=== PATIENT | female | born 1955 ===

== ENCOUNTER 2016-10-01 13:05 | Inpatient (IN) | payer MEDICAID, OTHER ==
[2016-10-01 13:05] VITALS: BMI 27.4
--- NOTE | 2016-10-01 14:09 | RAD ---
HISTORY: Medical clearance. Portable study 13:49. COMPARISON: No prior. FINDINGS: LUNGS: No active pulmonary disease. PLEURA: No significant pleural effusion identified, no pneumothorax apparent. CARDIOVASCULAR: No radiographic findings to suggest acute or significant cardiovascular disease. OSSEOUS STRUCTURES: No significant abnormalities. VISUALIZED UPPER ABDOMEN: Normal. OTHER FINDINGS: None. IMPRESSION: No active disease.
[2016-10-01 14:24] LABS: BASO # 0.1 K/uL (0.0-0.2); BASO % 1.4 % (0.0-2.0); EOS # 0.1 K/uL (0.0-0.7); EOS % 2.1 % (0.0-4.0); LYMPH # 1.9 K/uL (1.0-4.3); LYMPH % 36.4 % (20.0-40.0); MEAN CELL VOLUME 94.7 fl (81.0-99.0); MEAN CORPUSCULAR HGB CONC 33.8 g/dL (33.0-37.0); MEAN PLATELET VOLUME 9.2 fl (7.2-11.7); MONO # 0.5 K/uL (0.0-0.8); MONO % 9.8 % (0.0-10.0); NEUT # 2.6 K/uL (1.8-7.0); NEUT % 50.3 % (50.0-75.0); RED CELL DISTRIBUTION WIDTH 13.6 % (11.5-14.5); WHITE BLOOD COUNT 5.3 K/uL (4.8-10.8)
[2016-10-01 14:32] LABS: ALCOHOL SERUM < 10 mg/dl (0-10); ALKALINE PHOSPHATASE 206 U/L (38-126); ALT/SGPT 92 U/L (9-52); AST/SGOT 135 U/L (14-36); BILIRUBIN,TOTAL 0.2 mg/dl (0.2-1.3); BLOOD UREA NITROGEN 14 mg/dl (7-17); CALCIUM 8.9 mg/dL (8.4-10.2); CARBON DIOXIDE 20 mmol/L (22-30); CHLORIDE 108 mmol/L (98-107); GFR AFRICAN-AMERICAN > 60; GLUCOSE,RANDOM 339 mg/dL (65-105); POTASSIUM 4.4 MMOL/L (3.6-5.0); SODIUM 136 mmol/l (132-148); TOTAL PROTEIN 6.9 G/DL (6.3-8.2)
--- NOTE | 2016-10-01 14:36 | ED PDOC ---
HPI: Psych/Substance Abuse Time Seen by Provider: 10/01/16 13:15 Chief Complaint (Nursing): Psychiatric Evaluation Chief Complaint (Provider): Psychiatric Evaluation History Per: Patient History/Exam Limitations: no limitations Onset/Duration Of Symptoms: Days (x4) Current Symptoms Are (Timing): Still Present Associated Symptoms: Other (hearing voices telling her to harm herself; no suicidal/homicidal ideation) Involuntary Hold By: None Additional Complaint(s): Miranda Montgomery is a 60 year old female, with a past medical history inclusive of HTN, hypercholesterolemia, type II diabetes, seizure disorder bipolar disorder, depression and anxiety, who presents to the ED on 10/01/16 for a psychiatric evaluation, as she has been hearing voices telling her to harm herself over the past 4 days. Patient denies any suicidal/homicidal ideation, though she does admit to a previous suicide attempt 4 years ago via ingestion. She also admits to having been noncompliant with her psychiatric medication regimen, prescribed to her by her psychiatrist Dr. Ramon, as well as with her anti-seizure medications (for >1 month). Of note, patient reports daily alcohol use. PMD: Jefry Kline Psychiatrist: Dr. Ramon Past Medical History Reviewed: Historical Data, Nursing Documentation, Vital Signs Vital Signs: Last Vital Signs Temp 97 F L 10/01/16 13:06 Pulse 78 10/01/16 13:06 Resp 17 10/01/16 13:06 BP 148/74 10/01/16 13:06 Pulse Ox 99 10/01/16 13:06 - Medical History PMH: Anxiety, Arthritis, Back Problems (herniated discs), Bipolar Disorder, Colonic Polyps (2014), Depression, Diabetes (type 2), Hepatitis (C), HTN, Hypercholesterolemia, Seizures Denies: Asthma, Fractures, HIV, Pulmonary Embolism, Chronic Kidney Disease, Sexually Transmitted Disease - Surgical History Surgical History: Cholecystectomy, Endoscopy (2014) Other surgeries: colonoscopy - Family History Family History: States: Unknown Family Hx - Social History Current smoker - smoking cessation education provided: Yes (light smoker (<10 cigarettes/day)) Alcohol: Other (daily) Drugs: Cocaine - Immunization History Hx Tetanus Toxoid Vaccination: No Hx Influenza Vaccination: No Hx Pneumococcal Vaccination: No - Home Medications Home Medications: Ambulatory Orders Medication Instructions Recorded Gabapentin [Neurontin] 300 mg PO TID 09/02/14 Famotidine 20 mg PO BID 04/26/16 Lidocaine 5% [Lidoderm] 1 patch TOP DAILY 04/26/16 Phenytoin, Extended [Dilantin] 100 mg PO TID 04/26/16 Calcium Carbonate/Vitamin D3 1 tab PO BID 09/06/16 [Oysco 500-Vit D3 200 Tablet] Folic Acid 1 mg PO DAILY 09/06/16 Lisinopril [Zestril] 40 mg DAILY 09/06/16 Multivitamin [Daily Leisa] 1 tab PO DAILY 09/06/16 Penicillin VK [Pen-Vee K] 500 mg PO Q6 #20 tab 09/25/16 Aspirin [Ecotrin] 81 mg PO DAILY 10/01/16 Benztropine [Cogentin] 1 mg PO BID 10/01/16 Cholecalciferol [Vitamin D 1000 IU] 2,000 unit PO BID 10/01/16 Divalproex [Depakote ER] 250 mg PO BID 10/01/16 Fluticasone Nasal [Flonase] 2 spray CATRACHO DAILY PRN 10/01/16 Insulin Aspart, Recombinant 15 unit SC BRK 10/01/16 [Novolog] Insulin Aspart, Recombinant 18 unit SC ACL 10/01/16 [Novolog] Insulin Aspart, Recombinant 19 unit SC DIN 10/01/16 [Novolog] Insulin Glargine,Hum.rec.anlog 54 unit SC HS 10/01/16 [Toujeo Solostar] Linaclotide [Linzess] 290 mcg PO DAILY 10/01/16 lamoTRIgine [Lamictal] 100 mg PO BID 10/01/16 - Allergies Allergies/Adverse Reactions: Allergies Allergy/AdvReac Type Severity Reaction Status Date / Time No Known Allergies Allergy Verified 09/21/16 09:51 Review of Systems ROS Statement: Except As Marked, All Systems Reviewed And Found Negative Psych: Positive for: Psychosis (hearing voices telling her to harm herself). Negative for: Suicidal ideation (no homicidal ideation) Physical Exam - Reviewed Nursing Documentation Reviewed: Yes Vital Signs Reviewed: Yes - Physical Exam Appears: Positive for: Non-toxic, No Acute Distress Head Exam: Positive for: ATRAUMATIC, NORMAL INSPECTION, NORMOCEPHALIC Skin: Positive for: Normal Color, Warm, Dry Eye Exam: Positive for: Normal appearance, EOMI, PERRL ENT: Positive for: Normal ENT Inspection Neck: Positive for: Normal, Painless ROM, Supple Cardiovascular/Chest: Positive for: Regular Rate, Rhythm. Negative for: Murmur Respiratory: Positive for: Normal Breath Sounds. Negative for: Respiratory Distress Gastrointestinal/Abdominal: Positive for: Normal Exam, Soft. Negative for: Tenderness Back: Positive for: Normal Inspection Extremity: Positive for: Normal ROM. Negative for: Deformity (no signs of acute injury/trauma) Neurologic/Psych: Positive for: Alert, Oriented, Mood/Affect (calm/cooperative) - Laboratory Results Result Diagrams: 10/01/16 14:00 10/01/16 14:00 - ECG ECG: Positive for: Interpreted By Me ECG Rhythm: Positive for: Sinus Rhythm. Negative for: ST/T Changes Rate: 75 O2 Sat by Pulse Oximetry: 99 (RA) Pulse Ox Interpretation: Normal - Progress ED Course And Treament: Pt. evaluated by crisis and arrangements made for admission. Medical Decision Making Medical Decision Makin:15 Initial Impression: psychiatric evaluation Initial Plan: * EKG * CXR * Labs * Alcohol Serum * Dilantin * Urinalysis * Urine Drug Screen * Dilantin 100mg PO * Lamictal 25mg PO * Crisis Evaluation * 1:1 Observation * Reevaluation 18:09 Initial fingerstick glucose is 337. Will order administration of Insulin 6 units SC. 18:58 Repeat accucheck is 437, ordered administration of both an IV bolus as well as Insulin 8 units IV. 20:37 Repeat FSBS: 218. No ketones in urine. Pt. cleared medically for psychiatric administration. Scribe Attestation: Documented by Marely Curry, acting as a scribe for Wilmar Lawton Provider Scribe Attestation: All medical record entries made by the Scribe were at my direction and personally dictated by me. I have reviewed the chart and agree that the record accurately reflects my personal performance of the history, physical exam, medical decision making, and the department course for this patient. I have also personally directed, reviewed, and agree with the discharge instructions and disposition. Disposition - Clinical Impression Clinical Impression: Bipolar disorder - Patient ED Disposition Is Patient to be Admitted: Yes - Disposition Disposition: Routine/Home Disposition Time: 20:44 Condition: STABLE - Pt Status Changed To: Hospital Disposition Of: Inpatient - Admit Certification Admit to Inpatient:: After my assessment, the patient will require hospitalization for at least two midnights. This is because of the severity of symptoms shown, intensity of services needed, and/or the medical risk in this patient being treated as an outpatient.
[2016-10-01 14:54] LABS: RBC URINE 1 /hpf (0-3); URINE BILIRUBIN NEGATIVE (NEGATIVE); URINE BLOOD NEGATIVE (NEGATIVE); URINE COLOR YELLOW (YELLOW); URINE GLUCOSE (UA) >=500 mg/dL (Normal); URINE KETONE NEGATIVE (NEGATIVE); URINE LEUKOCYTE ESTERASE NEG Leu/uL (Negative); URINE PROTEIN 30 mg/dL (NEGATIVE); URINE UROBILINOGEN 0.2-1.0 mg/dL (0.2-1.0); WBC URINE 1 /hpf (0-5)
[2016-10-01] MEDS ORDERED: Insulin Regular 100 units/ml SC STA (18:09)
[2016-10-01] MEDS ORDERED: Insulin Regular 100 units/ml ONE ×2 (18:16→19:08)
[2016-10-01] MEDS ORDERED: Insulin Regular 100 units/ml IVP STA (18:58)
[2016-10-01] MEDS ORDERED: Sodium Chloride 0.9% 1,000 ML IV STA (18:58)
[2016-10-01 21:11] VITALS: O2SAT 100
[2016-10-01] MEDS ORDERED: DiphenhydrAMINE 50 mg/ml Inj IM PRN (21:53)
[2016-10-01] MEDS ORDERED: Alum-Mag Hydrox-Simethicone Susp (30 mL) PO PRN (21:53)
[2016-10-01] MEDS ORDERED: Magnesium Hydroxide Susp 30 ml UD PO PRN (21:53)
[2016-10-01] MEDS ORDERED: Bismuth Subsalicylate 262 mg/15 ml Sus (240 ml) PO PRN (21:56)
[2016-10-01] MEDS: Divalproex 250 mg DR(BID formulation) PO SCH (23:01)
[2016-10-01] MEDS: Insulin Regular 100 units/ml SC SCH (23:45)
[2016-10-02] MEDS: Divalproex 250 mg DR(BID formulation) PO SCH ×2 (08:13→17:32)
[2016-10-02] MEDS: Calcium-Vit D 500 mg-200 Units Tab UD PO SCH ×2 (08:14→17:33)
[2016-10-02] MEDS: Multivitamin With Minerals Tab PO SCH (08:14)
[2016-10-02] MEDS: Lidocaine 5% Patch TD SCH (08:17)
[2016-10-02] MEDS: Insulin Lispro (humaLOG) 100 Units/ml Inj SC SCH (08:21)
[2016-10-02 08:47] LABS: BASO % 0.3 % (0.0-2.0); EOS # 0.3 K/uL (0.0-0.7); EOS % 5.9 % (0.0-4.0); HEMATOCRIT 33.6 % (34.0-47.0); LYMPH # 1.7 K/uL (1.0-4.3); LYMPH % 37.7 % (20.0-40.0); MEAN CELL VOLUME 95.9 fl (81.0-99.0); MEAN CORPUSCULAR HEMOGLOBIN 31.5 pg (27.0-31.0); MEAN CORPUSCULAR HGB CONC 32.9 g/dL (33.0-37.0); MEAN PLATELET VOLUME 9.2 fl (7.2-11.7); MONO # 0.5 K/uL (0.0-0.8); MONO % 12.1 % (0.0-10.0); NRBC % 0.1 % (0.0-0.0); RED CELL DISTRIBUTION WIDTH 13.8 % (11.5-14.5); WHITE BLOOD COUNT 4.5 K/uL (4.8-10.8)
[2016-10-02] MEDS ORDERED: Benzocaine/Menthol (Cepacol) Lozenge PO PRN (09:13)
[2016-10-02 09:29] LABS: CHOLESTEROL 209 mg/dL (0-199)
[2016-10-02 09:35] LABS: ALB/GLOB RATIO 0.9 (1.0-2.1); ALKALINE PHOSPHATASE 185 U/L (38-126); ALT/SGPT 74 U/L (9-52); AST/SGOT 85 U/L (14-36); BILIRUBIN,TOTAL 0.3 mg/dl (0.2-1.3); BLOOD UREA NITROGEN 12 mg/dl (7-17); CALCIUM 8.8 mg/dL (8.4-10.2); CARBON DIOXIDE 22 mmol/L (22-30); CHLORIDE 107 mmol/L (98-107); GFR AFRICAN-AMERICAN > 60; GLUCOSE,RANDOM 323 mg/dL (65-105); POTASSIUM 4.2 MMOL/L (3.6-5.0); SODIUM 138 mmol/l (132-148); TOTAL PROTEIN 7.1 G/DL (6.3-8.2)
[2016-10-02 09:52] LABS: T4 9.94 ug/dl (5.5-11.0)
[2016-10-02 10:05] LABS: THYROID STIMULATING HORMONE 2.66 mIU/ML (0.46-4.68)
[2016-10-02] MEDS ORDERED: Insulin Lispro (humaLOG) 100 Units/ml Inj SC SCH ×2 (11:30→17:00)
--- NOTE | 2016-10-02 11:35 | CARD ---
APPROVED REPORT EKG Measurement Heart [id number] <Conclusion> Normal sinus rhythm Normal ECG
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
[2016-10-02] MEDS: Insulin Regular 100 units/ml SC SCH ×3 (12:26→23:59)
[2016-10-02] MEDS ORDERED: Insulin Detemir 100 Units/ml Inj SC SCH ×2 (22:00)
[2016-10-03] MEDS: Insulin Regular 100 units/ml SC SCH (06:19)
[2016-10-03 08:38] LABS: HEMATOCRIT 35.6 % (34.0-47.0); MEAN CELL VOLUME 95.9 fl (81.0-99.0); MEAN CORPUSCULAR HEMOGLOBIN 32.2 pg (27.0-31.0); MEAN CORPUSCULAR HGB CONC 33.6 g/dL (33.0-37.0); RED CELL DISTRIBUTION WIDTH 13.9 % (11.5-14.5); WHITE BLOOD COUNT 6.6 K/uL (4.8-10.8)
[2016-10-03 08:50] LABS: ALKALINE PHOSPHATASE 157 U/L (38-126); ALT/SGPT 70 U/L (9-52); AST/SGOT 51 U/L (14-36); BILIRUBIN,TOTAL 0.1 mg/dl (0.2-1.3); BLOOD UREA NITROGEN 13 mg/dl (7-17); CALCIUM 9.6 mg/dL (8.4-10.2); CARBON DIOXIDE 28 mmol/L (22-30); CHLORIDE 106 mmol/L (98-107); GFR AFRICAN-AMERICAN > 60; GLUCOSE,RANDOM 173 mg/dL (65-105); POTASSIUM 5.2 MMOL/L (3.6-5.0); SODIUM 144 mmol/l (132-148); TOTAL PROTEIN 7.9 G/DL (6.3-8.2)
[2016-10-03] MEDS: Insulin Lispro (humaLOG) 100 Units/ml Inj SC SCH ×5 (09:16→21:18)
[2016-10-03] MEDS: Lidocaine 5% Patch TD SCH (09:18)
[2016-10-03] MEDS: Calcium-Vit D 500 mg-200 Units Tab UD PO SCH ×2 (09:26→17:32)
[2016-10-03] MEDS: Multivitamin With Minerals Tab PO SCH (09:26)
[2016-10-03] MEDS: Divalproex 250 mg DR(BID formulation) PO SCH ×2 (09:27→17:33)
--- NOTE | 2016-10-03 09:30 | PN ---
DATE: 10/03/2016 MEDICAL FOLLOWUP NOTE The patient is seen and examined. Interim events noted. Psychiatric followup and intervention noted and appreciated. The patient remains in the psychiatric unit. The patient feels okay, had episode of low blood sugar. No chest pain or shortness of breath. PHYSICAL EXAMINATION: GENERAL: The patient is in no acute distress. VITAL SIGNS: Stable. HEART: S1, S2 normal, regular. LUNGS: Good bilateral air entry. ABDOMEN: Soft, nontender. EXTREMITIES: No edema, no calf swelling, no tenderness. No acute ischemia. CENTRAL NERVOUS SYSTEM: Essentially unchanged. DIAGNOSTIC DATA: Available diagnostic data reviewed. Overall, the patient's general medical condition is stable. PLAN: As ordered. Jefry Kline MD cc: [id number] TT: 10/03/2016 09:29:02 Confirmation # [id number] Dictation # [id number] [email or web address]
--- NOTE | 2016-10-03 13:23 | PCM.PYCHPN ---
Psychiatric Progress Note - Psychiatric Progress Note Patient seen today, length of contact: discussed with team Patient Chief Complaint: my sugar is all over the place Problems Identified/Issues Discussed: pt is sitting out in the day room socializing. she states her mood is improving. she denies medication side effects with abilify. Medication Change: No Consults ordered or reviewed: dr huitron is helping manage pt's diabetes Mental Status Examination - Cognitive Function Orientation: Person, Place, Situation Attention: WNL Concentration: WNL Association: WNL Fund of Knowledge: WN Decription of patient's judgement and insights: fair - Mood Mood: Neutral - Affect Affect: Broad - Speech Speech: Appropriate - Formal Thought Process Formal Thought Process: No Impairment - Suicidal Ideation Suicidal Ideation: No - Homicidal Ideation Homicidal Ideation: No Goal/Treatment Plan - Goal/Treatment Plan Need for Continued Stay: Remain at risks for inpatient hospitalization, Discharge may exacerbated symptoms Progress Toward Problem(s) and Goals/Treatment Plan: schizoaffective disorder alcohol dependence continue treatment with abilify- and will adjust as needed t/c neuro consult to adjust antiepilieptic medications Estimated Date of D/C: 10/06/16
[2016-10-03] MEDS ORDERED: Insulin Lispro (humaLOG) 100 Units/ml Inj SC SCH (16:30)
--- NOTE | 2016-10-03 17:00 | CON ---
DATE: 10/03/2016 ROOM: 318, psychiatry. HISTORY OF PRESENT ILLNESS: This is a 60-year-old female with known history of type 2 insulin-requir ing diabetes, now admitted for closer psychiatric evaluation and management of recent auditory halluc inations on the background of chronic schizoaffective disorder and is now being referred for diabetic evaluation because of extremes of glycemic fluctuations as noted thereof. PAST MEDICAL HISTORY: History of type 2 insulin-requiring diabetes on multiple injections of insulin , using Levemir at 54 units subQ at bedtime daily with Humalog given as 15 units subQ at breakfast ti me, 14 units at lunchtime, and 18 units at dinnertime with fluctuating glycemic levels as noted. How ever, overnight today she had a glucose dip of 42 mg/dL. History of hypertension and dyslipidemia, h istory of seizure disorder and has been off medications for some time now, history of chronic schizoa ffective disorder with previous admissions for depression and also suicidal attempts and ideations. SOCIAL HISTORY: The patient admits to nicotine dependence at this time with history of chronic alcoh olism and also previous illicit drug use with cocaine dependence over 20 years ago. REVIEW OF SYSTEMS: As mentioned above, admits to generalized body weakness with easy fatigability an d tiredness and suboptimal energy level. Also admits to episodic dizziness and lightheadedness, wors e on the day of admission. No chest pains or palpitations or PNDs. Her oral intake is variable with nausea, dyspepsia, and vague upper abdominal pain. Also, admits to polyuria and nocturia, again wor se over the last week or so prior to admission. PHYSICAL EXAMINATION: GENERAL: This is an average built female in no apparent distress. VITAL SIGNS: Blood pressure of 144/80, pulse of 70 beats per minute and regular, temperature 98, res pirations 20. Height is 5 feet 1 inch, weight is 143 pounds. HEENT: Head normocephalic. Eyes anicteric with pink conjunctivae. Fundoscopy not possible at this time. Ears, nose and throat otherwise normal. NECK: Supple. Thyroid gland is normal size. No carotid bruits. No cervical adenopathy. CARDIOPULMONARY: Has an adynamic precordium. S1, S2 is rapid and regular. LUNGS: Clear to auscultation. ABDOMEN: Flat, soft with positive bowel sounds. EXTREMITIES: No peripheral edema. Pulses are +2 bilaterally. LABORATORY DATA: Chemistry showed a BUN of 13, sodium 144, potassium 5.2, chloride 106, CO2 28, gluc ose 173 and creatinine 0.7. ASSESSMENT: This is a 60-year-old female with uncontrolled and decompensated type 2 insulin-requirin g diabetes with extremes of glycemic fluctuations from hypoglycemia to hyperglycemic accelerations as noted thereof. She also has diabetic microvascular complications of retinopathy and polyneuropathy with diabetic macrovascular complications of coronary artery disease and peripheral arterial disease and vasculopathy. She also has significant history of chronic schizoaffective disorder with previous admissions for major depression and suicidal ideations and gestures as noted thereof. PLAN OF MANAGEMENT: As discussed with the patient and the staff, will modify her current insulin reg imen to a more physiologic dosing combination and also at a much lower dosing regimen to obviate hypo glycemia, especially with the variability of her oral intake. Will lower the Humalog to 12 units a.c . breakfast and 12 units a.c. lunch with 14 units a.c. dinner to start today as ordered. Will also m odify the coverage scale with Humalog insulin to obviate hypoglycemia, and detailed orders have been given. Will lower the basal insulin with Levemir to be given as 14 units subQ at bedtime daily to [facility]. Will titrate incrementally as indicated to optimize metabolic control. Will follow. Melissa Bernal MD cc: [id number] TT: 10/03/2016 16:59:39 Confirmation # [id number] Dictation # [id number] steven
[2016-10-03] MEDS ORDERED: Magnesium Citrate Oral SOL (300 ml) PO ONE (20:16)
[2016-10-03] MEDS ORDERED: Insulin Detemir 100 Units/ml Inj SC SCH (22:00)
[2016-10-04] MEDS ORDERED: Insulin Lispro (humaLOG) 100 Units/ml Inj SC SCH (07:30)
[2016-10-04 07:37] LABS: ALB/GLOB RATIO 0.9 (1.0-2.1); ALKALINE PHOSPHATASE 139 U/L (38-126); ALT/SGPT 60 U/L (9-52); AST/SGOT 45 U/L (14-36); BILIRUBIN,TOTAL 0.2 mg/dl (0.2-1.3); BLOOD UREA NITROGEN 11 mg/dl (7-17); CALCIUM 8.9 mg/dL (8.4-10.2); CARBON DIOXIDE 28 mmol/L (22-30); CHLORIDE 102 mmol/L (98-107); GFR AFRICAN-AMERICAN > 60; GLUCOSE,RANDOM 146 mg/dL (65-105); SODIUM 136 mmol/l (132-148); TOTAL PROTEIN 6.9 G/DL (6.3-8.2)
--- NOTE | 2016-10-04 08:37 | PN ---
DATE: 10/04/2016 MEDICAL FOLLOWUP PROGRESS NOTE The patient is seen and examined. Interim events noted. Consults noted and appreciated. Endocrinol ogy and psychiatry followup and intervention noted and appreciated. The patient remains in the psych iatry unit. Denies any specific medical complaint, wants to go home. PHYSICAL EXAMINATION: GENERAL: The patient is in no acute distress. VITAL SIGNS: Stable. Physical exam is essentially unchanged. DIAGNOSTIC DATA: Available diagnostic data reviewed. Accu-Cheks are improved. Dilantin level is 4. 2. Medication is adjusted. Overall, the patient's general medical condition is stable. PLAN: As ordered. Jefry Kline MD cc: [id number] TT: 10/04/2016 08:37:31 Confirmation # [id number] Dictation # [id number] [email or web address]
[2016-10-04] MEDS: Multivitamin With Minerals Tab PO SCH (09:11)
[2016-10-04] MEDS: Divalproex 250 mg DR(BID formulation) PO SCH (09:12)
[2016-10-04] MEDS: Calcium-Vit D 500 mg-200 Units Tab UD PO SCH (09:14)
[2016-10-04] MEDS: Insulin Lispro (humaLOG) 100 Units/ml Inj SC SCH ×3 (09:17→12:31)
[2016-10-04 09:22] VITALS: BP 147/78
--- NOTE | 2016-10-04 09:46 | CON ---
DATE: 10/02/2016 CHIEF COMPLAINT: Hearing voices and she is really depressed. HISTORY OF PRESENT ILLNESS: This is a 60-year-old female, a patient of mine known to me for many yea rs, known case of diabetes, hypertension, elevated cholesterol, morbid obesity, status post gastric b ypass surgery, depression, hepatitis C, who was recently discharged from [facility] after admiss [facility] for alcohol withdrawal, alcohol detox and psychiatric issue, who was seen in the office yesterday . The patient was very devastated, was crying and was hearing voices and had intention of hurting he rself. The patient's family was also very much stressed and worried about her. The patient was sent to the Emergency Room for crisis intervention, where after psychiatric evaluation, the patient was a dmitted to psych unit. Medical consult was called for management of medical problems. REVIEW OF SYSTEMS: At this time is positive for psychiatric issues, but review of systems is negativ e for headache, dizziness, syncope, loss of consciousness, chest pain, shortness of breath, nausea, v omiting, diarrhea, constipation, any new joint or extremity pain. Review of systems of all other org an systems is unremarkable. PAST MEDICAL HISTORY: Significant for hypertension, diabetes, elevated cholesterol, morbid obesity, hepatitis C, seizure disorder and alcohol and substance abuse. Substance abuse was in the past. Alc ohol abuse is fairly recent. PAST SURGICAL HISTORY: Remarkable for gastric bypass surgery. PERSONAL HISTORY: The patient is currently abusing alcohol, but denies any substance abuse or smokin g. FAMILY HISTORY: Noncontributory. PHYSICAL EXAMINATION: GENERAL: Well-built, well-nourished 60-year-old female, depressed, crying, but in no acute respirato ry distress. VITAL SIGNS: Temperature afebrile, pulse 77, respirations 16, blood pressure 136/76. HEENT: Pupils reacting to light. No JVD, no thyromegaly, no lymphadenopathy. No nystagmus. Normoc ephalic, atraumatic skull. HEART: S1, S2 normal, regular. No significant murmur, gallop or rub is heard. LUNGS: Show good bilateral air exchange. ABDOMEN: Soft, nontender. No organomegaly, no fluid. Bowel sounds are plus. EXTREMITIES: No edema, no calf swelling, no tenderness, no acute ischemic. CENTRAL NERVOUS SYSTEM: Essentially unchanged. The patient is reexamined. There is no sign of any acute gross focal motor or sensory neurological deficit. DIAGNOSTIC DATA: Available diagnostic data reviewed. Urine toxicology is positive for benzodiazepin es, but negative for any drugs. ADMITTING IMPRESSION: A 60-year-old female admitted with diabetes, uncontrolled, type with hyperglyc emia, hypertension, elevated cholesterol, hepatitis C, alcohol abuse, history of substance abuse and morbid obesity, admitted with psychiatric issue. PLAN: As ordered. ____ follow up patient with you. Jefry Kline MD cc: [id number] TT: 10/02/2016 11:05:41 Confirmation # [id number] Dictation # [id number] tn 10/04/2016 08:45:48
--- NOTE | 2016-10-04 12:07 | PCM.PYCHDC ---
Mental Status Examination - Mental Status Examination Orientation: Person, Place, Situation, Time Memory: Intact Mood: Depressed Affect: Broad Speech: Appropriate, Slurred (secondary to cva) Attention: Poor Concentration: Poor Association: WNL Fund of Knowledge: WNL Formal Thought Process: No Impairment Description of patient's judgement and insight: fair insight/judgment currently Psychotic Thoughts and Behaviors: was reporting a/v hallucinations prior to admission. denies them now Suicidal Ideation: No Current Homicidal Ideation?: No Plan: currently denies suicidal or homicidal thoughts Discharge Summary - Discharge Note Reason for Hospitalization: pt reporting mood disturbance, hallucinations, suicidal thoughts Psychiatric History (includes Medical, Family, Personal Hx): previous admissions. pt has been seeing dr. brown for 15 plus years Laboratory Data: Abnormal Lab Results 10/03/16 10/04/16 10/04/16 21:00 06:14 06:39 Sodium 136 Potassium 5.0 Chloride 102 Carbon Dioxide 28 Anion Gap 10 BUN 11 Creatinine 0.6 L Est GFR ( Amer) > 60 Est GFR (Non-Af Amer) > 60 POC Glucose (mg/dL) 247 H 159 H Random Glucose 146 H Calcium 8.9 Total Bilirubin 0.2 AST 45 H ALT 60 H Alkaline Phosphatase 139 H Total Protein 6.9 Albumin 3.3 L Globulin 3.6 Albumin/Globulin Ratio 0.9 L Consultations:: List each consultation separately and include: 1. Reason for request. 2. Findings. 3. Follow-up Consultations: dr huitron is helping manage pt's diabetes Summary of Hospital Course include:: 1. Description of specific treatment plan utilized for patients during their course of treatmen. 2. Summarize the time- course for resolution of acute symptoms and/or regressed behaviors. 3. Describe issues identified and worked on during hospitalization. 4. Describe medication utilized. 5. Describe medical problems identified and treated. 6. Reassessment of suicide risk Summary of Hospital Course: 60 yo female with history of cocaine dependence- 30 years sober, and alcohol dependence as well as schizoaffective disorder. pt was at [facility] detox in mid september. she states she has only had a "few drinks" since . she reports she is here because she was feeling weak, depressed and hearing voices. she does not want to discuss the voices as she states "it's painful and complicated. she reports she wants to return to dr. brown who has been seeing her for 20 years. she reports some suicidal thoughts, but states "i won't do it , i have leah...i am strong" she is feeling sad and guilty about the impact of her drug use on her family. hospital course pt was [facility] and oriented to the unit. pt was seen by dr. baxter and dr. huitron to help manage her diabetes and other medical issues. her zyprexa was discontinued and she was started on abilify to manage her mood/psychotic symptoms. her other medicaitons were maintained as she received at home. the patient's mood improved and she was no longer complaining of any auditory/ visual hallucinations. her thoughts became more organized and she was visible in the milieu and participating in treatment. she had one verbal argument with a peer, but easily regained her usual composure. at time of discharged she was calm, denying suicidal or homicidal thoughts and future oriented with plans to return to dr. brown and to attend AA meetings to help with her sobriety. - Final Diagnosis (DSM 5) Condition upon Discharge: STABLE DSM 5: schizoaffective disorder alcohol dependence Disposition: HOME/ ROUTINE Follow-up Treatment Plan: follow up with outpatient providers take medications as prescribed see your medical specialists do not use alcohol, tobacco or other illicit substances call 911 if any suicidal or homicidal thoughts attend AA meetings daily Prescriptions/Medication Reconciliation: ARIPiprazole [Abilify] 5 mg PO DAILY #30 tab Aspirin [Ecotrin] 81 mg PO DAILY #30 Calcium Carbonate/Vitamin D3 [[place]co 500-Vit D3 200 Tablet] 1 tab PO BID #60 Cholecalciferol [Vitamin D 1000 IU] 2,000 unit PO BID #60 Divalproex [Depakote ER] 250 mg PO BID #60 Famotidine 20 mg PO BID #60 Fluticasone Nasal [Flonase] 2 spray CATRACHO DAILY PRN 30 Days PRN Reason: Allergy Symptoms Folic Acid 1 mg PO DAILY #30 Gabapentin [Neurontin] 300 mg PO TID #45 cap lamoTRIgine [Lamictal] 100 mg PO BID #30 Lidocaine 5% [Lidoderm] 1 patch TOP DAILY #30 Linaclotide [Linzess] 290 mcg PO DAILY #30 Lisinopril [Zestril] 40 mg PO DAILY #30 Multivitamin [Daily Leisa] 1 tab PO DAILY #30 Phenytoin, Extended [Dilantin] 100 mg PO TID #45 - Smoking Cessation Smoking Cessation Medication prescribed: No Reason for not providing: declines - Antipsychotic Medications Pt discharged on 2 or more routine antipsychotic medications: No
[2016-10-04 14:03] VITALS: PULSE 72; RESP 16; TEMP 97
[2016-10-05] MEDS ORDERED: Insulin Lispro (humaLOG) 100 Units/ml Inj SC SCH ×2 (07:30→11:30)
== END 2016-10-04 15:24 | disposition home or self-care (01) | DRG 430 ==
LOC: H.ER 13:05 → H.ERHOLD 18:09 → H.PSYCH 21:46
PROVIDERS: ADMIT Psychiatry & Neurology Psychiatry; ATTEND Psychiatry & Neurology Psychiatry
PROC: GZHZZZZ Group Psychotherapy (ICD-10-PCS; principal; 2016-10-01)
PROC: GZ58ZZZ Individual Psychotherapy, Cognitive-Behavioral (ICD-10-PCS; 2016-10-01)
DX: F25.0 Schizoaffective disorder, bipolar type (principal); E11.42 Type 2 diabetes mellitus with diabetic polyneuropathy; F14.20 Cocaine dependence, uncomplicated; R45.851 Suicidal ideations; E11.65 Type 2 diabetes mellitus with hyperglycemia; E66.01 Morbid (severe) obesity due to excess calories; E11.319 Type 2 diabetes mellitus with unspecified diabetic retinopathy without macular edema; B18.2 Chronic viral hepatitis C; G40.909 Epilepsy, unspecified, not intractable, without status epilepticus; F10.20 Alcohol dependence, uncomplicated; F17.210 Nicotine dependence, cigarettes, uncomplicated; E78.5 Hyperlipidemia, unspecified; I10 Essential (primary) hypertension; E78.00 Pure hypercholesterolemia, unspecified; I73.9 Peripheral vascular disease, unspecified; F41.9 Anxiety disorder, unspecified; I69.322 Dysarthria following cerebral infarction; Z91.19 Patient's noncompliance with other medical treatment and regimen; Z91.410 Personal history of adult physical and sexual abuse; Z91.5 Personal history of self-harm; Z79.4 Long term (current) use of insulin; Z79.82 Long term (current) use of aspirin; Z98.84 Bariatric surgery status; Z86.010 Personal history of colon polyps; Z68.27 Body mass index [BMI] 27.0-27.9, adult

== ENCOUNTER 2017-01-20 11:24 | Inpatient (IN) | payer MEDICAID, OTHER ==
[2017-01-20 11:25] VITALS: BMI 27.4
--- NOTE | 2017-01-20 12:01 | ED PDOC ---
HPI: Psych/Substance Abuse Time Seen by Provider: 01/20/17 11:55 Chief Complaint (Nursing): Psychiatric Evaluation Chief Complaint (Provider): Psychiatric Evaluation History Per: Patient History/Exam Limitations: no limitations Onset/Duration Of Symptoms: Days Current Symptoms Are (Timing): Still Present Associated Symptoms: Depression, Suicidal Thoughts Additional Complaint(s): Miranda is a 61 y/o female with a past medical history of diabetes, depression, and bipolar disorder, who was sent by PMD to the ED for psychiatric evaluation. Patient reports feeling depressed, hearing voices, and wanting to take pills to hurt herself. Denies homicidal ideation. PMD: Jefry Kline Past Medical History Reviewed: Historical Data, Nursing Documentation, Vital Signs Vital Signs: Last Vital Signs Temp 97 F L 01/20/17 11:34 Pulse 62 01/20/17 11:34 Resp 18 01/20/17 11:34 BP 146/85 01/20/17 11:34 Pulse Ox 99 01/20/17 11:34 - Medical History PMH: Anxiety, Arthritis, Back Problems (herniated discs), Bipolar Disorder, Colonic Polyps (2014), Depression, Diabetes (type 2), Hepatitis (C), HTN, Hypercholesterolemia, Schizophrenia, Seizures Denies: Asthma, Fractures, HIV, Pulmonary Embolism, Chronic Kidney Disease, Sexually Transmitted Disease - Surgical History Surgical History: Cholecystectomy, Endoscopy (2014) - Family History Family History: States: Unknown Family Hx - Living Arrangements Living Arrangements: With Family - Social History Alcohol: None Drugs: Denies - Immunization History Hx Tetanus Toxoid Vaccination: No Hx Influenza Vaccination: No Hx Pneumococcal Vaccination: No - Home Medications Home Medications: Ambulatory Orders Medication Instructions Recorded Insulin Aspart, Recombinant 15 unit SC BRK 10/01/16 [Novolog] Insulin Aspart, Recombinant 18 unit SC ACL 10/01/16 [Novolog] Insulin Aspart, Recombinant 19 unit SC DIN 10/01/16 [Novolog] ARIPiprazole [Abilify] 5 mg PO DAILY #30 tab 10/04/16 Aspirin [Ecotrin] 81 mg PO DAILY #30 10/04/16 Calcium Carbonate/Vitamin D3 1 tab PO BID #60 10/04/16 [Oysco 500-Vit D3 200 Tablet] Cholecalciferol [Vitamin D 1000 IU] 2,000 unit PO BID #60 10/04/16 Divalproex [Depakote ER] 250 mg PO BID #60 10/04/16 Famotidine 20 mg PO BID #60 10/04/16 Fluticasone Nasal [Flonase] 2 spray CATRACHO DAILY PRN 30 Days 10/04/16 Folic Acid 1 mg PO DAILY #30 10/04/16 Gabapentin [Neurontin] 300 mg PO TID #45 cap 10/04/16 Insulin Detemir [Levemir] 14 units SC HS vial 10/04/16 Lidocaine 5% [Lidoderm] 1 patch TOP DAILY #30 10/04/16 Linaclotide [Linzess] 290 mcg PO DAILY #30 10/04/16 Lisinopril [Zestril] 40 mg PO DAILY #30 10/04/16 Multivitamin [Daily Leisa] 1 tab PO DAILY #30 10/04/16 Phenytoin, Extended [Dilantin] 100 mg PO TID #45 10/04/16 lamoTRIgine [Lamictal] 100 mg PO BID #30 10/04/16 - Allergies Allergies/Adverse Reactions: Allergies Allergy/AdvReac Type Severity Reaction Status Date / Time No Known Allergies Allergy Verified 01/20/17 11:34 Review of Systems ROS Statement: Except As Marked, All Systems Reviewed And Found Negative Psych: Positive for: Depression, Suicidal ideation (wants to take pills). Negative for: Other (Homicidal ideation) Physical Exam - Reviewed Nursing Documentation Reviewed: Yes Vital Signs Reviewed: Yes - Physical Exam Appears: Positive for: Non-toxic, No Acute Distress Head Exam: Positive for: ATRAUMATIC, NORMAL INSPECTION, NORMOCEPHALIC Skin: Positive for: Normal Color, Warm, Dry Eye Exam: Positive for: EOMI, Normal appearance, PERRL Neck: Positive for: Normal, Painless ROM, Supple Cardiovascular/Chest: Positive for: Regular Rate, Rhythm. Negative for: Murmur Respiratory: Positive for: Normal Breath Sounds. Negative for: Accessory Muscle Use, Respiratory Distress Gastrointestinal/Abdominal: Positive for: Normal Exam, Soft. Negative for: Tenderness Back: Positive for: Normal Inspection. Negative for: Vertebral Tenderness Extremity: Positive for: Normal ROM. Negative for: Pedal Edema, Deformity Neurologic/Psych: Positive for: Alert, Oriented - Laboratory Results Result Diagrams: 01/20/17 12:20 01/20/17 12:20 Interpretation Of Abn Labs: no acute - ECG O2 Sat by Pulse Oximetry: 99 (RA) Pulse Ox Interpretation: Normal - Progress ED Course And Treament: 1407: Stable. Dr. Willis will admit for psych. Medically stable for eval. Medical Decision Making Medical Decision Making: Time: 12:00 Initial Impression: Psychiatric evaluation Initial Plan: --Labs --Pending crisis evaluation --Patient placed on 1:1 observation Scribe Attestation: Documented by Darya Grover, acting as a scribe for Jonathan Bassett MD Provider Scribe Attestation: All medical record entries made by the Scribe were at my direction and personally dictated by me. I have reviewed the chart and agree that the record accurately reflects my personal performance of the history, physical exam, medical decision making, and the department course for this patient. I have also personally directed, reviewed, and agree with the discharge instructions and disposition. Disposition - Clinical Impression Clinical Impression: Depression - Patient ED Disposition Is Patient to be Admitted: Yes Counseled Patient/Family Regarding: Studies Performed, Diagnosis - Disposition Disposition Time: 14:08 Condition: FAIR - Pt Status Changed To: Hospital Disposition Of: Inpatient - Admit Certification Admit to Inpatient:: After my assessment, the patient will require hospitalization for at least two midnights. This is because of the severity of symptoms shown, intensity of services needed, and/or the medical risk in this patient being treated as an outpatient. - POA Present On Arrival: None
[2017-01-20 12:24] LABS: BASO # 0.1 K/uL (0.0-0.2); BASO % 1.1 % (0.0-2.0); EOS # 0.2 K/uL (0.0-0.7); EOS % 3.9 % (0.0-4.0); HEMATOCRIT 35.3 % (34.0-47.0); LYMPH # 2.6 K/uL (1.0-4.3); LYMPH % 44.5 % (20.0-40.0); MEAN CORPUSCULAR HEMOGLOBIN 30.1 pg (27.0-31.0); MEAN CORPUSCULAR HGB CONC 33.2 g/dL (33.0-37.0); MEAN PLATELET VOLUME 9.3 fl (7.2-11.7); MONO # 0.5 K/uL (0.0-0.8); MONO % 8.8 % (0.0-10.0); NEUT # 2.4 K/uL (1.8-7.0); NEUT % 41.7 % (50.0-75.0); RED CELL DISTRIBUTION WIDTH 14.7 % (11.5-14.5); WHITE BLOOD COUNT 5.9 K/uL (4.8-10.8)
[2017-01-20 12:28] LABS: MEAN CELL VOLUME 90.6 fl (81.0-99.0)
[2017-01-20 12:36] LABS: ALCOHOL SERUM < 10 mg/dl (0-10); BLOOD UREA NITROGEN 21 mg/dl (7-17); CALCIUM 9.3 mg/dL (8.4-10.2); CARBON DIOXIDE 25 mmol/L (22-30); CHLORIDE 109 mmol/L (98-107); GFR AFRICAN-AMERICAN > 60; GLUCOSE,RANDOM 67 mg/dL (65-105); POTASSIUM 4.6 MMOL/L (3.6-5.0); SODIUM 142 mmol/l (132-148)
[2017-01-20 14:53] VITALS: O2SAT 100
[2017-01-20] MEDS ORDERED: Alum-Mag Hydrox-Simethicone Susp (30 mL) PO PRN (17:27)
[2017-01-20] MEDS ORDERED: DiphenhydrAMINE 50 mg/ml Inj IM PRN (17:27)
[2017-01-20] MEDS ORDERED: Magnesium Hydroxide Susp 30 ml UD PO PRN (17:27)
[2017-01-20] MEDS: Divalproex 250 mg DR(BID formulation) PO SCH (18:04)
[2017-01-21] MEDS: Divalproex 250 mg DR(BID formulation) PO SCH ×2 (08:49→17:09)
[2017-01-21 09:22] LABS: T4 7.23 ug/dl (5.5-11.0)
[2017-01-21 09:31] LABS: THYROID STIMULATING HORMONE 4.5 mIU/ML (0.46-4.68)
--- NOTE | 2017-01-22 09:22 | PCM.PSYCH ---
Initial Psychiatric Evaluation - Initial Psychiatric Evaluation Legal Status: Capacity Chief Complaint (in patient's own words): pt is depressed Patient's Reaction to Hospitalization: pt is depressed and was drinking History of Present Illness and Precipitating Events: Patient is a 61 y/o female admitted 01/20/17 due to SI with plan, AH, depression , and anxiety. Patient reported at admission having had thoughts to take pills. On unit, patient denies thoughts to harm self or others. Patient is superficially cooperative and reports goal to focus more on herself than on others. Reported AH at admission but denies at present. Thoughts are clear and organized in conversation. Patient identifies that stress leading up to admission exacerbated sxs. Patient is anxious and reports feeling depressed though mood appears to have improved since arrival to unit. Patient is social with peers. Coping skills are limited, but patient is able to explore coping strategies appropriately. Hx of of polysubstance abuse but denies recent use Current Medications: Active Medications Generic Name Dose Route Start Last Admin Trade Name Freq PRN Reason Stop Dose Admin Acetaminophen 650 mg 01/20/17 17:27 01/20/17 18:03 Tylenol 325mg Tab PO 650 mg Q4 PRN Administration Pain, moderate (4-7) Al Hydrox/Mg Hydrox/Simethicone 30 ml 01/20/17 17:27 Maalox Plus 30 Ml PO Q4 PRN Dyspepsia Aspirin 81 mg 01/22/17 09:00 Aspirin Chewable PO DAILY LAYLA Bupropion HCl 150 mg 01/22/17 09:00 Wellbutrin Sr 150 Mg PO DAILY LAYLA Calcium Carbonate 500 mg 01/22/17 09:00 Oscal PO DAILY [facility] Cholecalciferol 5,000 iu 01/22/17 09:00 Vitamin D PO DAILY LAYLA Diphenhydramine HCl 50 mg 01/20/17 17:27 Benadryl IM Q6 PRN Extrapyramidal S/S Unable PO Diphenhydramine HCl 50 mg 01/20/17 17:41 Benadryl PO HS PRN Sleep Divalproex Sodium 250 mg 01/20/17 17:45 01/21/17 17:09 José Lowe(*Bid*) PO 250 mg BID LAYLA Administration Famotidine 20 mg 01/22/17 09:00 Pepcid PO DAILY LAYLA Folic Acid 1 mg 01/22/17 09:00 Folic Acid PO DAILY LAYLA Gabapentin 300 mg 01/21/17 17:00 01/21/17 17:09 Neurontin PO 300 mg TID LAYLA Administration Haloperidol 5 mg 01/20/17 17:27 Haldol PO Q4 PRN Agitation Haloperidol Lactate 5 mg 01/20/17 17:27 Haldol IM Q4 PRN Agitation, Unable to Take PO Insulin Detemir 45 units 01/22/17 22:00 Levemir SC HS [facility] Lamotrigine 100 mg 01/22/17 09:00 Lamictal PO BID LAYLA Lisinopril 20 mg 01/22/17 09:00 Zestril PO DAILY LAYLA Lorazepam 2 mg 01/20/17 17:27 Ativan IM Q4 PRN Anxiety/Agitation,Unable PO Lorazepam 2 mg 01/20/17 17:27 Ativan PO Q4 PRN Anxiety/Agitation Magnesium Hydroxide 30 ml 01/20/17 17:27 Milk Of Magnesia PO HS PRN Constipation Multivitamins/Vitamin C 5 ml 01/22/17 09:00 Multi-Delyn Liquid PO DAILY [facility] Phenytoin Sodium 100 mg 01/22/17 09:00 Dilantin PO TID LAYLA Risperidone 1 mg 01/21/17 11:45 01/21/17 21:03 Risperdal Tab PO 1 mg AMHS LAYLA Administration Past Psychiatric History - Past Psychiatric History At [facility] hospital: [facility] in june this year for depresssion and drinking Nature of Treatment: depression History of Abuse: denies History of ETOH/Drug Use: pt has h/o drinking for past several years and last drink 4 months and denies withdrawls now History of Family Illness: none Pertinent Medical Hx (Current Medical&Sleep Prob, Allergies): Allergies Allergy/AdvReac Type Severity Reaction Status Date / Time No Known Allergies Allergy Verified 01/20/17 11:34 Acetaminophen [Tylenol Arthritis] 650 mg PO TID PRN 01/20/17 Aspirin [Ecotrin] 81 mg PO DAILY 01/20/17 Benztropine [Cogentin] 2 mg PO DAILY 01/20/17 Calcium Carbonate/Vitamin D3 [Caltrate 600 Plus D3 Tablet] 1 tab PO DAILY Cholecalciferol [Vitamin D 1000 IU] 5,000 unit PO DAILY 01/20/17 Famotidine [Pepcid] 20 mg PO BID 01/20/17 Folic Acid [Folic Acid] 1 mg PO DAILY 01/20/17 Gabapentin [Neurontin] 300 mg PO TID 01/20/17 Insulin Aspart, Recombinant [Novolog] 9 unit SC DIN 01/20/17 Insulin Aspart, Recombinant [Novolog] 15 unit SC BRK 01/20/17 Insulin Aspart, Recombinant [Novolog] 18 unit SC ACL 01/20/17 Insulin Glargine,Hum.rec.anlog [Toujeo Solostar] 56 unit SC HS 01/20/17 Linaclotide [Linzess] 290 mcg PO DAILY 01/20/17 Lisinopril/Hydrochlorothiazide [Lisinopril-Hctz 20-25 mg Tab] 1 tab PO DAILY Multivitamin [Multi-Vitamin Daily] 1 tab PO DAILY 01/20/17 Phenytoin, Extended [Dilantin] 100 mg PO TID 01/20/17 Risperidone [Risperdal] 0.5 mg PO HS 01/20/17 buPROPion XL [Wellbutrin XL] 150 mg PO DAILY 01/20/17 lamoTRIgine [Lamictal] 100 mg PO BID 01/20/17 Diabetes.HTN Review of Systems - Review of Systems All systems: reviewed and no additional remarkable complaints except Mental Status Examination - Personal Presentation Personal Presentation: Looks stated age - Affect Affect: Constricted, Depressed - Motor Activity Motor Activity: Other - Reliability in Providing Information Reliability in Providing Information: Fair - Speech Speech: Relevant - Mood Mood: Depressed - Formal Thought Process Formal Thought Process: No Impairment, Flight of ideas - Hallucinations/Delusions Hallucinations: Auditory - Obsessions/Compulsions Obsessions: No - Cognitive Functions Orientation: Person, Place, Situation Sensorium: Alert Attention/Concentration: Easily distracted Judgement: Imparied, as evidence by: Poor judgement, Imparied, as evidence by: Lack of insight into illness Memory: Recent intact, as evidence by: Ability to recall events of the day - Strength & Assets Inventory Strength & Assets Inventory: Family support DSM 5 DX - DSM 5 DSM 5 Diagnosis: schizoaffective disorder ,depressed h/o alcohol abuse in past - Recommended/Plan of Treatment Treatment Recommendations and Plan of Treatment: will in rease risperdal to stabilize the psychotic thinking and monitor the response and side effects As pt is doing well on wellbutrin and will titrate as nedded to stabilize the pt
[2017-01-22] MEDS: Multiple Vitamins Oral Solution PO SCH (09:46)
[2017-01-22] MEDS: Divalproex 250 mg DR(BID formulation) PO SCH ×2 (09:46→17:22)
[2017-01-22] MEDS: buPROPion SR 150 MG TABLET PO SCH (09:49)
[2017-01-22] MEDS: Insulin Lispro (humaLOG) 100 Units/ml Inj SC SCH (17:11)
[2017-01-22] MEDS: Insulin Detemir 100 Units/ml Inj SC SCH (21:30)
[2017-01-23] MEDS: Insulin Lispro (humaLOG) 100 Units/ml Inj SC SCH ×5 (05:37→21:15)
[2017-01-23] MEDS: Multiple Vitamins Oral Solution PO SCH (09:26)
[2017-01-23] MEDS: Divalproex 250 mg DR(BID formulation) PO SCH ×2 (09:26→17:34)
[2017-01-23] MEDS: buPROPion SR 150 MG TABLET PO SCH (09:26)
--- NOTE | 2017-01-23 11:55 | PN ---
DATE: 01/23/2017 SUBJECTIVE: The patient was seen and examined. Interim events noted. Psychiatry intervention noted and appreciated. The patient remains in psych unit. Denies any specific medical complaint. No chest pain. No shortness of breath. PHYSICAL EXAMINATION: GENERAL: The patient is in no acute distress. VITAL SIGNS: Stable. HEART: S1 and S2 normal, regular. LUNGS: Good bilateral air exchange. ABDOMEN: Soft and nontender. EXTREMITIES: No edema. No calf swelling or tenderness. No acute ischemia. CEO & FOUNDER: Essentially unchanged. DIAGNOSTIC DATA: Available diagnostic data reviewed. Accu-Check remains high with 300 range. The patient was started on Levemir yesterday. IMPRESSION: Overall, the patient is medically stable. PLAN: As ordered. Jefry Kline MD
--- NOTE | 2017-01-23 11:56 | PCM.PYCHPN ---
Psychiatric Progress Note - Psychiatric Progress Note Patient Chief Complaint: pt is depressed Mental Status Examination - Cognitive Function Orientation: Person, Place, Situation - Mood Mood: Depressed - Affect Affect: Constricted, Depressed - Formal Thought Process Formal Thought Process: No Impairment, Flight of ideas - Homicidal Ideation Homicidal Ideation: No Goal/Treatment Plan - Goal/Treatment Plan Progress Toward Problem(s) and Goals/Treatment Plan: will in rease risperdal to stabilize the psychotic thinking and monitor the response and side effects As pt is doing well on wellbutrin and will titrate as nedded to stabilize the pt
[2017-01-23] MEDS: Insulin Detemir 100 Units/ml Inj SC SCH (21:17)
[2017-01-24] MEDS: Insulin Lispro (humaLOG) 100 Units/ml Inj SC SCH ×5 (06:31→21:42)
[2017-01-24] MEDS: Multiple Vitamins Oral Solution PO SCH (08:43)
[2017-01-24] MEDS: buPROPion SR 150 MG TABLET PO SCH (08:43)
--- NOTE | 2017-01-24 08:56 | CON ---
DATE: CHIEF COMPLAINT: Severe depression. HISTORY OF PRESENT ILLNESS: This is a 61-year-old female who was seen in the office yesterday where the patient was crying and was inconsolable and was complaining of hearing voices. Also collateral evidence from parents are confirmed that patient was doing some abnormal behavior like cleaning herself with laundry detergent. The patient was sent to the emergency room where after evaluation and crisis evaluation, patient was admitted to psychiatric clinic. Medical consult was requested for medical problem management. REVIEW OF SYSTEMS: At this time is positive for psychiatric complaint. Review of system otherwise is negative for headache, dizziness, syncope, loss of consciousness, chest pain, shortness of breath, nausea, vomiting, diarrhea, constipation or any joint or extremity pain. Review of system of all other organ system is unremarkable. PAST MEDICAL HISTORY: Significant for diabetes, hypertension, morbid obesity, coronary artery disease, psychiatric disorder, elevated cholesterol, seizure disorder. PAST SURGICAL HISTORY: Remarkable for multiple surgeries for morbid obesity and constipation. PERSONAL HISTORY: The patient is currently nonsmoker and nondrinker. No substance abuse. MEDICATION: The patient is on multiple medications. ALLERGIES: THE PATIENT IS NOT ALLERGIC TO ANY MEDICATION. FAMILY HISTORY: Noncontributory. PHYSICAL EXAMINATION: GENERAL: The patient is well-developed, well-nourished depressed 61-year-old female in no acute distress. VITAL SIGNS: Temperature afebrile, pulse 60, respirations 18, blood pressure 130/73. HEENT: Pupils are reacting to light. Normocephalic and atraumatic scalp. NECK: No JVD. No thyromegaly. No lymphadenopathy. No nystagmus. HEART: S1 and S2 normal and regular. No significant murmur, gallop, or rub is heard. LUNGS: Shows good bilateral air exchange. No rales or rhonchi. ABDOMEN: Soft and nontender. No organomegaly noted. Bowel sounds are present. Multiple scars are present. EXTREMITIES: No edema. No calf swelling. No tenderness. CENTRAL NERVOUS SYSTEM: Essentially unchanged. is no sign of any acute gross, focal, motor or sensory neurological deficit. LABORATORY DATA: Reviewed and show Jefry Kline MD
--- NOTE | 2017-01-24 09:31 | PN ---
DATE: 01/22/2017 SUBJECTIVE: The patient seen and examined. Interim events noted. Psychiatry and intervention noted and appreciated. The patient remains in geropsychiatric unit. The patient feels little better, depression seems to be much improved. The patient is happy and smiling. No chest pain. No shortness of breath. No medical complaints. PHYSICAL EXAMINATION: GENERAL: The patient is in no acute distress. VITAL SIGNS: Stable. HEART: S1 and S2 normal and regular. LUNGS: Good bilateral air exchange. ABDOMEN: Soft and nontender. EXTREMITIES: No edema. No calf swelling or tenderness. No acute ischemia. CENTRAL NERVOUS SYSTEM: Essentially unchanged. DIAGNOSTIC DATA: Available diagnostic data reviewed. Hemoglobin A1c is 9.5. ASSESSMENT: Overall, the patient's general medical condition is stable. We will start the patient back on maintenance medications. PLAN: As ordered. Case and plan was discussed with the patient. Jefry Kline MD
--- NOTE | 2017-01-24 10:22 | PCM.PYCHPN ---
Psychiatric Progress Note - Psychiatric Progress Note Patient seen today, length of contact: discussed with team Patient Chief Complaint: i want to go home Problems Identified/Issues Discussed: pt is asking to leave. she is looking sedated. she is stating she no longer has any a/v hallucinations, but she seems confused at times. pt's blood sugars are up and down. she is on4 antiepileptic medications. Medication Change: Yes (dc wellbutrin) Medical Record Reviewed: Yes Consults ordered or reviewed: endocrinology and neurology Mental Status Examination - Cognitive Function Orientation: Person, Place, Situation Memory: Intact Attention: Poor Concentration: Poor Association: WNL Fund of Knowledge: [facility] Decription of patient's judgement and insights: superficial insight - Mood Mood: Anxious - Affect Affect: Constricted, Depressed - Speech Speech: Slurred - Formal Thought Process Formal Thought Process: No Impairment, Loosening of associations Psychotic Thoughts and Behaviors: disorganized/confused - Suicidal Ideation Suicidal Ideation: No - Homicidal Ideation Homicidal Ideation: No Goal/Treatment Plan - Goal/Treatment Plan Need for Continued Stay: Remain at risks for inpatient hospitalization, Severe functional impairment Progress Toward Problem(s) and Goals/Treatment Plan: schizoaffective disorder history of polysubstance abuse seizure disorder pt on 4 antiepileptics and states she has a seizure disorder, but does not see a neurologist, but is treated by dr. baxter. there are serious interactions with lamictal and depakote. pt also on neurontin and dilantin. she is also on wellbutrin which is contraindicated with a seizure disorder will dc wellbutrin will ask for a neurology consult to help clarify seizure dx and consolidate treatment encorinology consulted to help manage diabetes which appears poorly controlled at this time encouraged the pt to sign a 48 hour notice if she wants to leave the hospital as at this time she does not appear appopriate for discharge risperdal has helped control psychotic symptoms will check dilantin and depakote levels Estimated Date of D/C: 01/27/17
[2017-01-24] MEDS: Divalproex 250 mg DR(BID formulation) PO SCH ×2 (12:53→17:31)
[2017-01-24 17:39] VITALS: RESP 18
[2017-01-24] MEDS: Insulin Detemir 100 Units/ml Inj SC SCH (21:44)
--- NOTE | 2017-01-24 22:02 | PN ---
DATE: 01/24/2017 SUBJECTIVE: The patient was seen and examined. Interim events noted. Psychiatric followup and intervention noted and appreciated. The patient feels okay. Denies any specific complaints. No chest pain. No shortness of breath. Feels ready, well and wants to go home. PHYSICAL EXAMINATION: GENERAL: The patient is in no acute distress. VITAL SIGNS: Stable. HEART: S1 and S2 normal and regular. LUNGS: Good bilateral air entry. ABDOMEN: Soft, nontender. EXTREMITIES: No edema. No calf swelling. No tenderness. No acute ischemia. CENTRAL NERVOUS SYSTEM: Essentially unchanged. DIAGNOSTIC DATA: Available diagnostic data reviewed. Accu-checks are fluctuating. The patient did not get her regular Lantus; although it was not held by my order. IMPRESSION: Overall, the patient is clinically and medically stable. PLAN: As ordered. Jefry Kline MD
--- NOTE | 2017-01-24 23:10 | CON ---
ENDOCRINOLOGY CONSULT LOCATION: Room #320 HISTORY OF PRESENT ILLNESS: This is a 61-year-old female with known history of type 2 insulin-requiring diabetes admitted here to the psychiatry unit because of increasing generalized anxiety and depression and is now being referred for diabetic evaluation and management. PAST MEDICAL HISTORY: History of type 2 insulin-requiring diabetes on a combination of Toujeo given as 56 units subcu at bedtime daily as noted. She is also on NovoLog given as 9 units before dinner and 18 units at lunchtime as noted. History of hypertension and dyslipidemia, history of diabetic retinopathy and polyneuropathy, also history of generalized anxiety and depression with underlying chronic schizoaffective disorder. FAMILY HISTORY: Positive for diabetes and hypertension. SOCIAL HISTORY: The patient has a supportive family. No known substance use. REVIEW OF SYSTEMS: As mentioned above. Admits to generalized body weakness with easy fatigability and tiredness and suboptimal energy level. Also admits to episodic bouts of dizziness and lightheadedness, worse on the day of admission. No chest pains or palpitations or PND. Her oral intake is variable and suboptimal with dyspepsia and vague upper abdominal pains. Also admits to episodic polyuria and nocturia as noted. PHYSICAL EXAMINATION: GENERAL: This is an average-built female, in no apparent distress. VITAL SIGNS: Blood pressure of 140/80, pulse of 70 beats per minute and regular, temperature 99, respirations 20, height is 5 feet and 1 inch and weight is 140 pounds. HEENT: Head normocephalic. Eyes anicteric with pink conjunctivae. Funduscopy not possible at this time. Ears, nose, and throat otherwise normal. NECK: Supple. Thyroid gland is normal in size. No carotid bruits or cervical adenopathy. CARDIOPULMONARY: Some adynamic precordium. S1 and S2 are rapid and regular. LUNGS: Clear to auscultation. ABDOMEN: Flat, soft with positive bowel sounds. EXTREMITIES: No peripheral edema. Pulses are +2 bilaterally. LABORATORY DATA: Her chemistry showed a BUN of 21, sodium 142, potassium 4.6, chloride 109, CO2 of 25, glucose 67 and creatinine 0.7. Her glucose levels have ranged from 304 to 367 mg/dL. ASSESSMENT: This is a 61-year-old female with uncontrolled and decompensated type 2 insulin-requiring diabetes presenting here with major depression and also supervening hyperglycemic accelerations as noted thereof. She also has diabetic microvascular complications of retinopathy and polyneuropathy as noted. PLAN: Plan of management as discussed with the patient and staff. We will modify current basal and bolus insulin regimen and switch over to a more physiologic dose combination with Levemir to be given as 40 units subcu at bedtime daily to start tonight. We will also add Humalog given as 8 units subcu t.i.d. before meals to start at dinner time today as ordered. We will modify the coverage scale to obviate hypoglycemia and detailed orders have been given. We will obtain serial chemistries and supplement accordingly as needed. We will follow. Melissa Bernal MD
--- NOTE | 2017-01-25 00:21 | CON ---
DATE: 01/24/2017 NEUROLOGY CONSULTATION CHIEF COMPLAINT: Evaluation of her seizure medications. HISTORY OF PRESENT ILLNESS: This is a 61-year-old woman with history of hypertension, type 2 diabetes, morbid obesity, constipation, depression, and anxiety, who came to the psychiatric facility because she was crying uncontrollably and was complaining of hearing voices and therefore came to stabilize *------* for underlying severe depression. She is walking around with a better mood now and a better affect. She has a questionable history of seizure disorder. No further seizures. She mentioned that her chin tremors, though no postictal phenomenon associated with that. No focal weakness in the extremities. She is on multiple antiepileptic drugs such as Lamictal, Depakote, Neurontin, and Dilantin, all of which she does not need to be all on. Her MRI of the brain in 09/2016 showed no acute intracranial abnormalities, just chronic ischemic changes. She had an EEG also in 09/2016, which showed just bilateral cerebral dysfunction. No evidence of any epileptiform activity. PAST MEDICAL HISTORY: History of hypertension, diabetes, coronary artery disease, depression, anxiety, questionable seizure disorder, and hyperlipidemia. ALLERGIES: NO KNOWN DRUG ALLERGIES. MEDICATIONS: Reviewed by nurse per reconciliation sheet. SOCIAL HISTORY: No illicit drug use, smoking, or ETOH abuse. REVIEW OF SYSTEMS: A 14-point review of system is negative except per the HPI. PHYSICAL EXAMINATION: GENERAL: The patient seen up in bed in no acute distress. VITAL SIGNS: Temperature 97.8, pulse rate 69, blood pressure 120/70, respiratory rate 18, and oxygen saturation 98% by room air. HEENT: Head is atraumatic, normocephalic. PERRLA. Extraocular muscles intact. NECK: Supple. No JVD. No adenopathy noted. LUNGS: Clear to auscultation. No adventitious sounds. HEART: S1 and S2, normal rate and rhythm. No murmur, rubs, or gallops. ABDOMEN: Soft, nontender, nondistended. Bowel sounds present. EXTREMITIES: No clubbing. No cyanosis. Peripheral pulses 2+ felt bilaterally. NEUROLOGIC: The patient is alert and oriented to person, place, month, and year. Affect is flat. Loose association and tangential speech. Attention span, thought process mildly slow. Cranial nerves II through XII are intact. Motor exam: Moves all extremities equally. Toes are downgoing bilaterally. Sensory exam: Light touch and pinprick slightly decreased at the calves bilaterally and decreased vibration of the toes. DTRs are 2+ throughout and 1 at the ankles. Coordination [id number] intact. Gait is normal, but mildly wide based. LABORATORY DATA: No new labs done today, except for her blood sugars are 221 and has A1c of 9.5 indicating poorly controlled diabetes. ASSESSMENT: This is a 61-year-old woman with history of depression, anxiety, hypertension, dyslipidemia, and type 2 diabetes mellitus, uncontrolled with a recent A1c of 9.5, questionable seizure disorder with the MRI of the brain in 09/2016 showing no acute intracranial abnormalities, EEG in 09/2016 just showing mild bilateral cerebral dysfunction, no evidence o f any epileptiform activity, who is in psychiatric room for severe depression and it is getting stabilized. I was consulted for management of her multiple various antiepileptic medications. At this time, given that she has not had any seizures or any primary generalized tonic-clonic seizures in a while, which can be provocative of hyperglycemic and hypoglycemic fluctuations, which we need to stabilize her diabetes. RECOMMENDATIONS: I recommend: 1. Keep her blood sugars between 140-180 and followup with an security systems installer as an outpatient to adjust her diabetic medications. 2. We can taper down of her Dilantin and Lamictal since she will be on Depakote and Neurontin. At this time, recommend to taper off her Dilantin and Lamictal and just can keep her on Depakote current dose, as well as Neurontin 300 mg p.o. t.i.d. 3. Continue with psychiatric medications, avoid typical neuroleptics, which can lower the seizure threshold and should followup with a neurologist as an outpatient. Once again thank you for this consult. Vadim Pollock MD
[2017-01-25] MEDS: Insulin Lispro (humaLOG) 100 Units/ml Inj SC SCH ×7 (06:29→21:19)
--- NOTE | 2017-01-25 08:45 | PN ---
DATE: 01/25/2017 SUBJECTIVE: The patient is seen and examined. Interim events noted. Psychiatric followup and intervention noted and appreciated. The patient remains in Psychiatric unit. The patient feels okay. Denies any specific complaints. No chest pain. No shortness of breath. PHYSICAL EXAMINATION: GENERAL: The patient is in no acute distress. VITAL SIGNS: Stable. HEART: S1 and S2 normal and regular. LUNGS: Good bilateral air exchange. ABDOMEN: Soft, nontender. EXTREMITIES: No edema. No calf swelling. No tenderness. No acute ischemia. CENTRAL NERVOUS SYSTEM: Essentially unchanged. DIAGNOSTIC DATA: Available diagnostic data reviewed. IMPRESSION: Overall, the patient's general medical condition is stable. PLAN: As ordered. Jefry Kline MD
[2017-01-25] MEDS: Divalproex 250 mg DR(BID formulation) PO SCH ×2 (09:46→16:21)
[2017-01-25] MEDS: Multiple Vitamins Oral Solution PO SCH (09:48)
[2017-01-25 09:53] LABS: VALPROIC ACID 21.4 ug/mL (50.0-100.0)
--- NOTE | 2017-01-25 11:20 | PCM.PYCHPN ---
Psychiatric Progress Note - Psychiatric Progress Note Patient seen today, length of contact: discussed with team Patient Chief Complaint: i want to go home Problems Identified/Issues Discussed: pt is demanding to leave. she has trouble understanding the concept of the 24 hour notice and seems to struggle to retain information. she is refusing to sign the 48 hour notice. she denies a/v hallucinations, but appears internally preoccupied. Medication Change: Yes (lower lamictal, phenytoin) Medical Record Reviewed: Yes Mental Status Examination - Cognitive Function Orientation: Person, Place, Situation Memory: Intact Attention: Poor Concentration: Poor Association: WNL Fund of Knowledge: WNL Decription of patient's judgement and insights: superficial insight - Mood Mood: Anxious - Affect Affect: Constricted, Depressed - Speech Speech: Slurred - Formal Thought Process Formal Thought Process: No Impairment, Loosening of associations Psychotic Thoughts and Behaviors: disorganized/confused - Suicidal Ideation Suicidal Ideation: No - Homicidal Ideation Homicidal Ideation: No Goal/Treatment Plan - Goal/Treatment Plan Need for Continued Stay: Remain at risks for inpatient hospitalization, Severe functional impairment Progress Toward Problem(s) and Goals/Treatment Plan: schizoaffective disorder history of polysubstance abuse seizure disorder appreciate neurology consult- will start to lower lamital and phenytoin appreciate endocrinology consult encouraged the pt to sign a 48 hour notice if she wants to leave the hospital as at this time she does not appear appopriate for discharge risperdal has helped control psychotic symptoms Estimated Date of D/C: 01/27/17
[2017-01-25 19:53] VITALS: PULSE 62
--- NOTE | 2017-01-25 21:01 | PN ---
DATE: 01/25/2017 ENDO FOLLOWUP NOTE LOCATION: In room 320. SUBJECTIVE: This is a 61-year-old female with recent uncontrolled type 2 insulin-requiring diabetes mellitus, now being followed closely for metabolic management. She has undergone close psychiatric evaluation for major depression at this time. Her glucose levels have ranged from 221 to 232 mg/dL. Her latest chemistry shows a BUN of 21, sodium 142, potassium 4.6, chloride 109, CO2 of 25, glucose 67, and creatinine 0.7. Her A1c is 9.5%. So, at this time, we will modify once again her Humalog and increase the Humalog to 10 units subcu t.i.d. before meals, to start at dinner time today as ordered. We will titrate incrementally as indicated to optimize the metabolic control. We will also continue the low dose correction scale using the Humalog insulin as given. We will titrate incrementally as indicated to optimize metabolic control. We will also continue with same basal insulin, given as Levemir 40 units subcu at bedtime daily as noted. We will titrate incremental as indicated to optimize the metabolic control. We will follow and advise accordingly. Melissa Bernal MD
[2017-01-25] MEDS: Insulin Detemir 100 Units/ml Inj SC SCH (21:20)
[2017-01-26] MEDS: Insulin Lispro (humaLOG) 100 Units/ml Inj SC SCH ×3 (06:30→09:01)
[2017-01-26] MEDS: Divalproex 250 mg DR(BID formulation) PO SCH (08:45)
[2017-01-26] MEDS: Multiple Vitamins Oral Solution PO SCH (09:19)
[2017-01-26 09:20] VITALS: BP 132/68; TEMP 96.8
--- NOTE | 2017-01-26 09:49 | PCM.PYCHDC ---
Mental Status Examination - Mental Status Examination Orientation: Person, Place, Situation, Time Memory: Intact Mood: Neutral Affect: Broad Speech: Appropriate Attention: WNL Concentration: WNL Association: WNL Fund of Knowledge: WNL Formal Thought Process: No Impairment Description of patient's judgement and insight: superficial insight Psychotic Thoughts and Behaviors: pt is denying any suicidal or homicidal thoughts Suicidal Ideation: No Current Homicidal Ideation?: No Plan: pt denies any suicidal or homicidal thoughts Discharge Summary - Discharge Note Reason for Hospitalization: psychosis Psychiatric History (includes Medical, Family, Personal Hx): depression Laboratory Data: Abnormal Lab Results 01/25/17 08:50 Phenytoin 10.3 Valproic Acid 21.4 L Consultations:: List each consultation separately and include: 1. Reason for request. 2. Findings. 3. Follow-up Consultations: endocrinology and neurology consults appreciated Summary of Hospital Course include:: 1. Description of specific treatment plan utilized for patients during their course of treatmen. 2. Summarize the time- course for resolution of acute symptoms and/or regressed behaviors. 3. Describe issues identified and worked on during hospitalization. 4. Describe medication utilized. 5. Describe medical problems identified and treated. 6. Reassessment of suicide risk Summary of Hospital Course: admitted to [facility] and oriented to the unit. placed on routine safety protocols. started on her home medications and dosages titrated to current levels. wellbutrin was discontinued at pt was c/o having a seizure disorder. endocrinology and neurology were consulted. it was recommended that pt be left on depakote and neurontin and the dilantin and lamictal be tapered off. the pt' s psychotic symptoms resolved. she did not have any psychotic symptoms. she was in good control of behaviors. at the time of discharge she was goal directed and future oriented and was denying any suicidal or homicidal thoughts. - Final Diagnosis (DSM 5) Condition upon Discharge: FAIR DSM 5: schizoaffective disorder history of polysubstance dependence Disposition: HOME/ ROUTINE Follow-up Treatment Plan: follow up with aftercare as directed take medications as prescribed do not use alcohol, tobacco or other illicit substances call 911 if any suicidal or homicidal thoughts Prescriptions/Medication Reconciliation: Divalproex [Depakote DR(*BID*)] 250 mg PO BID #60 tcp Gabapentin [Neurontin] 300 mg PO TID #90 lamoTRIgine [Lamictal] 25 mg PO BID #21 tab Phenytoin, Extended [Dilantin] 100 mg PO BID #21 cer risperiDONE [RisperDAL Tab] 1 mg PO DAILY #30 tab risperiDONE [RisperDAL Tab] 2 mg PO HS #30 tab - Smoking Cessation Smoking Cessation Medication prescribed: No Reason for not providing: declines - Antipsychotic Medications Pt discharged on 2 or more routine antipsychotic medications: No
--- NOTE | 2017-01-26 10:27 | PN ---
DATE: 01/26/2017 SUBJECTIVE: The patient seen and examined. Interim events noted. Consults noted and appreciated, Endocrinology. Psychiatric followup and intervention noted and appreciated. The patient remains in PACU unit. She has labile mood, but no medical complaint. No chest pain. No shortness of breath. PHYSICAL EXAMINATION: GENERAL: The patient is in no acute distress. VITAL SIGNS: Stable. HEART: S1, S2. Normal regular. LUNGS: Good bilateral air exchange. ABDOMEN: Soft, nontender. EXTREMITIES: No edema. No calf swelling. No tenderness. No acute ischemia. CENTRAL NERVOUS SYSTEM: Essentially unchanged. DIAGNOSTIC DATA: Available diagnostic data reviewed and the results are acceptable. IMPRESSION: The patient's general medical condition is stable. PLAN: As ordered. Jefry Kline MD
--- NOTE | 2017-01-26 23:41 | PN ---
DATE: 01/26/2017 ENDOCRINOLOGY FOLLOWUP NOTE LOCATION: Room 320. SUBJECTIVE: This is a 61-year-old female with recent uncontrolled type 2 insulin-requiring diabetes, now being followed closely for metabolic management. Her glycemic levels are fluctuating, but improved, and the latest glucose levels have ranged from 166 to 192 mg/dL. So at this time, we will continue the same basal and bolus insulin regimen as ordered with Levemir given as 40 units subcutaneous at bedtime daily as ordered. She will be resuming her Toujeo insulin on the outpatient when discharged from the hospital today. She was also advised to continue the Humalog given as 40 units subcutaneous t.i.d. before meals as ordered. We will titrate incremental as indicated to optimize metabolic control. We will follow and advise accordingly. Melissa Bernal MD
== END 2017-01-26 14:26 | disposition home or self-care (01) | DRG 430 ==
LOC: H.ER 11:24 → H.ERHOLD 14:03 → H.PSYCH 16:09
PROVIDERS: ADMIT Psychiatry & Neurology Psychiatry; ATTEND Psychiatry & Neurology Psychiatry
PROC: GZHZZZZ Group Psychotherapy (ICD-10-PCS; principal; 2017-01-20)
DX: F25.9 Schizoaffective disorder, unspecified (principal); E11.42 Type 2 diabetes mellitus with diabetic polyneuropathy; R45.851 Suicidal ideations; E11.319 Type 2 diabetes mellitus with unspecified diabetic retinopathy without macular edema; B19.20 Unspecified viral hepatitis C without hepatic coma; E11.65 Type 2 diabetes mellitus with hyperglycemia; E78.00 Pure hypercholesterolemia, unspecified; E78.5 Hyperlipidemia, unspecified; F41.1 Generalized anxiety disorder; G40.909 Epilepsy, unspecified, not intractable, without status epilepticus; I10 Essential (primary) hypertension; I25.10 Atherosclerotic heart disease of native coronary artery without angina pectoris; Z79.4 Long term (current) use of insulin